=== PATIENT | female | born 2005 | race Caucasian/White ===

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

== ENCOUNTER 2025-02-20 14:02 | Emergency (ER) | payer OTHER, SELFPAY ==
[2025-02-20 14:09] VITALS: BP 126/74; PULSE 74; TEMP 36.9; O2SAT 95; BMI 17.0
--- NOTE | 2025-02-20 14:24 | ED.GENADUL1 ---
HPI HPI - General Adult General Chief complaint: Skin/Abscess/Foreign Body Stated complaint: FACE PUFFYNESS Time Seen by Provider: 02/20/25 14:03 Source: patient Mode of arrival: walk-in Limitations: no limitations History of Present Illness HPI narrative: 19-year-old female presents to the emergency department for puffiness on the left side of her face, mostly below her left eye. No injury. She states she was outdoors longer than usual and was in the sun yesterday and received a little bit of sunburn. The patient was concerned however because of the swelling and she took some Benadryl but it did not help and she came in here to get checked. No eye drainage. No dental pain Related Data Previous Rx's ?Medication ?Instructions ?Recorded prednisone 10 mg tablet See Rx Instructions .Route 02/20/25 .COMPLEX #18 tabs Allergies Allergy/AdvReac Type Severity Reaction Status Date / Time No Known Drug Allergies Allergy Verified 04/07/23 02:17 Opioid HPI Opioid Management Most Recent Opioid Data: Ur Phencyclidine Scrn, (NEGATIVE) Negative 04/07/23, 02:55 Review of Systems ROS Narrative A ten point review of systems is negative except as noted above. PFSH PFSH Social History Little interest or pleasure in doing things: not at all Feeling down, depressed, or hopeless: not at all Exam Narrative Exam Narrative: Nurses note and vital signs reviewed and patient is not hypoxic. General: The patient appears well and in no apparent distress. Patient is resting comfortably on cart. Skin: Warm, dry, no pallor noted. There mild sunburn on her face. There is mild swelling on the left side of her face, particular below her left eye Head: Normocephalic, atraumatic Eye: Normal conjunctiva, no drainage Ears, Nose, Mouth, and Throat: oral mucosa is moist. Nares patent. Cardiovascular: Regular Rate and Rhythm Respiratory: Patient is in no distress, no accessory muscle use, lungs are clear to auscultation, no wheezing, rales or rhonchi Back: non-tender GI: Soft and nontender Musculoskeletal: The patient has no evidence of calf tenderness, no pitting edema, symmetrical pulses noted bilaterally Neurological: A&O, normal speech Psychiatric: Cooperative Constitutional Vital Signs, click to edit/add: Last Vital Signs Temp 98.5 F 02/20/25 14:09 Pulse 74 02/20/25 14:09 Resp 18 02/20/25 14:09 BP 126/74 02/20/25 14:09 Pulse Ox 95 02/20/25 14:09 O2 Del Method Room Air 02/20/25 14:09 Course Vital Signs Vital signs: Vital Signs Temperature 98.5 F 02/20/25 14:09 Pulse Rate 74 02/20/25 14:09 Respiratory Rate 18 02/20/25 14:09 Blood Pressure 126/74 02/20/25 14:09 Pulse Oximetry 95 02/20/25 14:09 Oxygen Delivery Method Room Air 02/20/25 14:09 Temperature 98.5 F 02/20/25 14:09 Pulse Rate 74 02/20/25 14:09 Respiratory Rate 18 02/20/25 14:09 Blood Pressure 126/74 02/20/25 14:09 Pulse Oximetry 95 02/20/25 14:09 Oxygen Delivery Method Room Air 02/20/25 14:09 Medical Decision Making MDM Narrative Medical decision making narrative: Should be placed on a course of prednisone and was recommended Benadryl and ice as well. Treatment diagnosis and follow-up were discussed with the patient. Differential Diagnosis Differential Diagnosis: Sunburn, allergic reaction, environmental allergies Discharge Plan Discharge Chief Complaint: Skin/Abscess/Foreign Body Clinical Impression: Allergic reaction, Sunburn Patient Disposition: Home, Self-Care Time of Disposition Decision: 14:21 Condition: Good Mode of Transportation: Private Vehicle Prescriptions / Home Meds: New prednisone 10 mg tablet See Rx Instructions .ROUTE .COMPLEX Qty: 18 0RF Rx Instructions: 3 by mouth daily for three days then 2 by mouth daily for three days then 1 by mouth daily for three days Print Language: [place]i Instructions: Sunburn (ED), Allergies (ED) Referrals: Physician,Non-Staff, MD [Primary Care Provider] - 1 week
== END 2025-02-20 14:34 | disposition home or self-care (01) ==
PROVIDERS: Emergency Provider Emergency Medicine
DX: L55.9 Sunburn, unspecified (principal); T78.49XA Other allergy, initial encounter
CPT/HCPCS: 99283